=== PATIENT | male | born 1980 | race Caucasian/White ===

== ENCOUNTER 2017-05-16 03:00 | Inpatient (IN) | payer OTHER ==
[~2017-05-16] VITALS: Ht 182.9 cm; Wt 72.1 kg
--- NOTE | ~2017-05-16 | DS ---
Unit #: [id number] #: [id number] Patient: WILLIAMS VALDOVINOS [id number] [facility] [address] [place] [address] [id number] MR#: [id number] NAME: WILLIAMS VALDOVINOS ROOM: [facility] Age: 36 Sex: M Admission Date: 05/16/2017 : 1980 Discharge Date: 05/18/2017 Attending Physician: Kuldip Downing M.D. DISCHARGE SUMMARY REASON FOR ADMISSION Depression. DIAGNOSTIC STUDIES LABORATORY RESULTS: Unremarkable. HOSPITAL COURSE The patient was admitted to inpatient unit on 05/16/2017 and discharged on 05/18/2017. The patient was treated with chemical dependency group, psychoeducation, psychotherapy, structured milieu, medication management. The patient was treated with Zyprexa. The patient had some side effects such as EPS symptom and given Benadryl, responsive to that. The patient was subsequently discharged on trazodone 100 mg at bedtime only. DISCHARGE DIAGNOSES Psychiatric: Psychosis, not otherwise specified, F29.0; rule out substance-induced psychosis; mood disorder, not otherwise specified. Secondary diagnosis: Deferred. Medical diagnosis: Hypertension. Stressors: Psychosocial stressor. DISCHARGE INSTRUCTIONS The patient to follow up in outpatient clinic as per director social. CONDITION ON DISCHARGE The patient was pleasant and cooperative. Denied any psychotic symptom or any suicidal ideation. PROGNOSIS Guarded. DIET AND ACTIVITY As tolerated. Dictated by... Kuldip Downing M.D. SZC/jhonl Unit #: [id number] #: [id number] Patient: WILLIAMS VALDOVINOS TD: 05/19/2017 04:20 JOB #: [id number] DISCHARGE SUMMARY Page 1 of 1 X Kuldip Downing MD X DISCHARGE SUMMARY
--- NOTE | ~2017-05-16 | HP ---
Unit #: [id number] #: [id number] Patient: WILLIAMS VALDOVINOS [id number] [place] [address] [id number] MR#: [id number] NAME: WILLIAMS VALDOVINOS ROOM: [facility] Age: 36 Sex: M Admission Date: 05/16/2017 : 1980 Attending Physician: Kuldip Downing M.D. Admitting Physician: Kuldip Downing M.D. Primary Care Physician: Ayesha Anguiano Family HISTORY AND PHYSICAL HISTORY OF PRESENT ILLNESS Williams is a 36 year old admitted to [facility] after reporting auditory hallucinations and increased paranoia. PAST MEDICAL HISTORY Nothing significant. PAST SURGICAL HISTORY Nothing reported. ALLERGIES No known drug allergies. He reports that Risperdal "locks me up". SOCIAL HISTORY Smokes two packs per day. Denies alcohol. Admits to using marijuana on a daily basis and has a long history of illicit substance abuse to include opioids, benzodiazepines and cocaine. FAMILY HISTORY Medically noncontributory. REVIEW OF SYSTEMS CONSTITUTIONAL: No fever or chills. HEENT: Denies any sore throat, ear pain or runny nose. CARDIOVASCULAR: Denies chest pain, irregular heart rhythm or palpitations. CHEST: Denies shortness of breath or cough. No hemoptysis. GASTROINTESTINAL: Denies nausea, vomiting, diarrhea or chronic constipation. ENDOCRINE: Denies history of increased thirst or urination. No recent significant weight loss or gain. GENITOURINARY: Denies dysuria, frequency, or hematuria. SKIN: Denies any rashes. HEMATOLOGIC: Denies history of increased bleeding or bruising. MUSCULOSKELETAL: Denies any hot, swollen joints. No generalized muscle pain. NEUROLOGIC: Denies problems with vision or speech. No frequent, severe headaches. No numbness, tingling or weakness in any extremities. Denies loss of bladder or bowel control. CURRENT MEDICATIONS 1. Desyrel 100 mg q h.s. p.r.n. 2. Milk of Magnesia p.r.n. Unit #: [id number] #: [id number] Patient: WILLIAMS VALDOVINOS 3. Maalox p.r.n. 4. Tylenol p.r.n. 5. Zyprexa 5 mg b.i.d. 6. Nicotine patch 14 mg q day PHYSICAL EXAMINATION GENERAL: Alert, well-nourished, in no apparent distress. VITAL SIGNS: Blood pressure 122/82, respirations 16, temperature 98.6. WEIGHT: 159 pounds. HEIGHT: 6'0". SKIN: Warm and dry without rash or lesion. HEENT: Normocephalic. TMs not viewed. Oral and nasal passages clear. Conjunctivae clear. Pupils equal, round and reactive to light and accommodation. Extraocular movements intact. NECK: Supple without lymphadenopathy or thyromegaly. HEART: Regular rate and rhythm without murmur. LUNGS: Clear. ABDOMEN: Soft, nontender. : Not done. EXTREMITIES: No evidence of cyanosis, clubbing or edema. Moves all extremities without focal deficit. NEUROLOGICAL: Grossly within normal limits. Cranial Nerves: II: Visual valadez are intact. III, IV AND : Extraocular movements are intact. Pupils are equal, round and reactive to light. V: Facial sensation is grossly normal. VII: Facial movements and expression are normal. VIII: Auditory acuity grossly intact. IX, X: Uvula is midline. Phonation is normal. XI: Patient shrugs shoulders and turns head normally. XII: Tongue protrudes in the midline. Sensory and Motor Function: Sensory and motor sensation is grossly normal. Motor: moves all extremities well. Coordination: Gait is normal. Deep Tendon Reflexes: Intact. IMPRESSION Psychiatric admission RECOMMENDATIONS PSYCHIATRIC: Per psychiatrist. MEDICAL: I see no contraindications to participating in facility's activities. MEDICAL PROGNOSIS Good. MEDICAL CONDITION Stable. Dictated by... Francesco Camejo/marjorie Unit #: [id number] #: [id number] Patient: WILLIAMS VALDOVINOS TD: 05/17/2017 21:44 JOB #: [id number] HISTORY AND PHYSICAL Page 1 of 1 X Addis Lo HISTORY AND PHYSICAL
--- NOTE | ~2017-05-16 | PN ---
Unit #: [id number] #: [id number] Patient: WILLIAMS GRADY [id number] [facility] [address] [place] [address] [id number] MR#: [id number] NAME: WILLIAMS GRADY ROOM: [facility] Age: 36 Sex: M Admission Date: 05/16/2017 : 1980 Attending Physician: Kuldip Downing M.D. Admitting Physician: Kuldip Downing M.D. Primary Care Physician: [facility] PROGRESS NOTES DATE OF SERVICE 05/17/2017 DISCUSSION Williams Grady is a 36-year-old male seen on 05/17/2017. The patient interviewed, chart reviewed. Obtained information from nursing staff. The patient was compliant, cooperative. Mood sad, dysphoric, flat affect, guarded, withdrawn. The patient's vital signs: 98.4, 70, 87/54. Complete Review of Systems: Unremarkable. MENTAL STATUS EXAMINATION General Appearance: The patient dressed casually. Withdrawn, isolative. Attention span, concentration: Poor. Oriented in place and person. Mood and affect: Sad, depressed. Speech: Monotone. Thought process: [place]. The patient denied any suicidal ideation, but passive SI, withdrawn, guarded, paranoid, delusional. Recent and remote memory: Poor. Insight and judgment: Poor. DIAGNOSES 1. Psychosis not otherwise specified. 2. Mood disorder not otherwise specified. ASSESSMENT/PLAN Advised to continue with current medication and therapeutic protocol. If needed, consider further adjustment of medication. Dictated by... Cameron Lopez/bishop TD: 05/18/2017 11:40 JOB #: [id number] Unit #: [id number] #: [id number] Patient: WILLIAMS GRADY PROGRESS NOTES Page 1 of 1 X Kuldip Downing MD X PROGRESS NOTE
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
--- NOTE | ~2017-05-16 | A ---
[facility] Nutrition Therapy DATE: 05/17/17 Patient: WILLIAMS VALDOVINOS Physician: MARYSE Address: [address] Room/Bed: [address], Zip: [place] [address] Admit Date: 05/16/17 Date of : [birth year] Height: 6 0 Weight: [phone] NUTRITIONAL ASSESSMENT: REASON: UNINTENTIONAL WEIGHT LOSS PATIENT ADMITTED FOR PARANOIA, PSYCHOSIS, SI, AND POLYSUBSTANCE ABUSE PMH: HTN Anthropometrics: HT: 72", WT: 1593, BMI: 21.6 Labs: NO LABS AVAILABLE Meds: DESYREL, ZYPREXA Assessment: PATIENT IS A 36 Y/O MALE ADMITTED FOR SI, PARANOIA, PSYCHOSIS, AND POLYSUBSTANCE ABUSE. PATIENT IS CURRENTLY UNEMPLOYED, HOMELESS, SMOKES 2 PPD, HAS DAILY METH AND MARIJUANA USE, OCCASIONAL COCAINE USE, AND A HX OF OPIATE ABUSE. IT IS NOTED THAT PATIENT HAS BEEN NON-COMPLIANT WITH HIS MEDICATIONS PRIOR TO ADMIT. PER NEEDS ASSESSMENT PATIENT STATED A GOOD APPETITE WITH A 30# WEIGHT LOSS OVER THE LAST SEVERAL WEEKS. THERE IS NO WEIGHT HX RECORDED IN WARSTUFF. CURRENT PO INTAKES ARE UNAVAILABLE. PATIENT'S BMI IS WITHIN A HEALTHY RANGE AND HE IS 89% OF HIS IBW. CURRENT PSYCH MEDS MAY CAUSE FLUCTUATIONS IN HIS WEIGHT AND APPETITE. PATIENT IS ON A REGULAR DIET. THERE ARE NO SKIN OR GI ISSUES NOTED ATT. Dx: UNINTENTIONAL WEIGHT LOSS R/T SUBSTANCE ABUSE, CURRENT CONDITION AEB SELF-REPORTED WEIGHT LOSS AND DECREASED APPETITE, NUTRITIONAL RISK POINT Intervention: REGULAR DIET, MEDS PER MD, DETOX, PSYCH Monitoring, Evaluation and Goals: 1. ADEQUATE PO INTAKES >50% OF MEALS 2. PREVENT, CORRECT MICRO/MACRO NUTRIENT DEFICIENCIES 3. WEIGHT; PREVENT WEIGHT LOSS MONITOR: WEIGHTS, LABS, PO/FLUID INTAKES Recommendations: 1. CONTINUE REGULAR DIET TOLERATED. OFFER SNACKS BETWEEN MEALS. IF PATIENT HAS C/O HUNGER PLEASE SEND AN ORDER FOR LARGER PORTIONS AND RD WILL APPROVE. 2. ENCOURAGE ADEQUATE PO AND FLUID INTAKES 3. OBTAIN WEIGHTS ROUTINELY (EVERY 3-4 DAYS) [facility] Nutrition Therapy DATE: 05/17/17 Patient: WILLIAMS VALDOVINOS Physician: MARYSE Address: [address] Room/Bed: [address], Zip: [place] [address] Admit Date: 05/16/17 Date of : [birth year] Height: 6 0 Weight: [phone] 4. IF PO INTAKES ARE BELOW 50% OF MEALS PLEASE ORDER ENSURE BID TO PROMOTE ADEQUATE KCAL AND PROTEIN INTAKES RD TO F/U PER PROTOCOL AND PRN R/T PATIENT MILDLY COMPROMISED Respectfully, DIMITRY ONEAL, RD, LD Food and Nutritional Services [facility] cc: client file
== END 2017-05-18 15:50 | DRG 885 ==
LOC: P1E 16:45
DX: F29 Unspecified psychosis not due to a substance or known physiological condition (principal); F39 Unspecified mood [affective] disorder; I10 Essential (primary) hypertension; F17.210 Nicotine dependence, cigarettes, uncomplicated
CPT/HCPCS: J1200